=== PATIENT | male | born 1990 | race Caucasian/White ===

== ENCOUNTER 2019-10-01 14:41 | Observation (INO) ==
[2019-10-01] MEDS ORDERED: 0.9 % Sodium Chloride 1,000 ML IVC ONE (15:51)
[2019-10-01] MEDS ORDERED: SODIUM CHLORIDE 0.9% IVPB ONE (16:00)
[2019-10-01] MEDS ORDERED: TOBRAMYCIN SULF IVPB ONE (16:00)
[2019-10-01 16:41] LABS: Basophils % 0.4 %; Eosinophils # 0.4 K/mcL (0.0-0.6); Hematocrit 47.2 % (37.5-50.1); Hemoglobin 15.5 g/dL (12.9-16.9); Immature Granulocytes % 0.6 % (0-4); Lymphocytes # 2.6 K/mcL (0.6-4.6); Lymphocytes % 25.2 %; Mean Corpuscular HGB Conc 32.8 g/dL (31.6-35.5); Mean Corpuscular Hemoglobin 29.1 pg (28.0-33.3); Mean Corpuscular Volume 88.7 fL (83.0-100.0); Mean Platelet Volume 8.1 fL (9.4-12.4); Monocytes # 0.7 K/mcL (0.0-1.3); Monocytes % 6.9 %; Neutrophils # 6.4 K/mcL (1.6-8.9); Platelet Count 323 K/mcL (140-400); Red Blood Count 5.32 M/mcL (4.19-5.50); Red Cell Distribution Width 13.2 % (11.5-14.5); Segmented Neutrophils % 62.9 %; White Blood Count 10.2 K/mcL (4.3-11.1)
[2019-10-01 16:54] LABS: BUN/Creatinine Ratio 29 (6-26); Blood Urea Nitrogen 14 mg/dL (6-20); Calcium 9.6 mg/dL (8.6-10.3); Carbon Dioxide 30 mEq/L (23-29); Chloride 101 mEq/L (98-107); Glucose 89 mg/dL (70-105); Osmolality,Calculated 288 (280-300); Potassium 4.1 mEq/L (3.5-5.1); Sodium 139 mEq/L (136-145); eGFR For African Americans > 60 (> 60); eGFR For Non-African Americans > 60 (> 60)
[2019-10-01] MEDS ORDERED: Aminoglycoside Consult 1 EACH MC ONE (17:30)
[2019-10-01 17:58] LABS: Bilirubin,Urine Negative (Negative); Blood,Urine Large (Negative); Clarity,Urine Cloudy (Clear); Color,Urine Yellow (Yellow); Glucose,Urine (UA) Normal (Normal); Ketones,Urine Negative (Negative); Leukocyte Esterase,Urine Large (Negative); Nitrite,Urine Negative (Negative); PH,Urine 8.5 pH Units (5.0-8.0); Protein,Urine 30 mg/dL (Neg-Trace); Specific Gravity,Urine 1.015 (1.010-1.025); Urobilinogen,Urine Normal (Normal)
[2019-10-01 18:14] LABS: Amorphous Sediment,Urine Moderate (Few); Renal Epithelial Cells,Urine Many per hpf (None-Few); Squamous Epithelial Cell,Urine None Seen per lpf (None-Few); WBC,Urine 30-50 per hpf (0-3)
[2019-10-01 18:15] LABS: Mucus,Urine Few (Few); RBC,Urine 15-30 per hpf (0-3); Triple Phosphate Crystal,Urine Present
[2019-10-01] MEDS ORDERED: Naloxone 0.4 MG/ML INJ IVP PRN (19:01)
[2019-10-01] MEDS ORDERED: TOBRAMYCIN SULF IVPB SCH (19:01)
[2019-10-01] MEDS: 0.9 % Sodium Chloride 1,000 ML IVC SCH (20:20)
[2019-10-01] MEDS ORDERED: Acetaminophen 325 MG TABLET PO PRN (21:44)
[2019-10-01] MEDS ORDERED: traZODone 50 MG TABLET PO SCH (21:45)
[2019-10-01] MEDS: Gabapentin 300 MG CAPSULE PO SCH (22:50)
[2019-10-01] MEDS: OXcarbazepine 150 MG TABLET PO SCH (22:50)
[2019-10-01] MEDS: Famotidine 20 MG TABLET PO SCH (22:50)
[2019-10-02] MEDS: Gabapentin 300 MG CAPSULE PO SCH ×2 (08:18→14:36)
[2019-10-02] MEDS: OXcarbazepine 150 MG TABLET PO SCH (08:18)
[2019-10-02] MEDS: Famotidine 20 MG TABLET PO SCH (08:19)
[2019-10-02] MEDS ORDERED: Cyanocobalamin (B-12) 1,000 MCG TABLET PO SCH (09:00)
[2019-10-02] MEDS ORDERED: Triamcinolone Acet 0.1% CRM 15 GM TUBE TP SCH (09:00)
[2019-10-02] MEDS ORDERED: Cholecalciferol (D-3) 1,000 UNIT (25MCG) TABLET PO SCH (09:00)
[2019-10-02] MEDS ORDERED: Venlafaxine XR (24 HR) 150 MG CAP.ER.24H PO SCH (09:00)
[2019-10-02 10:40] VITALS: BP 101/64
[2019-10-02] MEDS: 0.9 % Sodium Chloride 1,000 ML IVC SCH (14:33)
[2019-10-02] MEDS ORDERED: TOBRAMYCIN SULF IVPB SCH (17:00)
[2019-10-02] MEDS ORDERED: SODIUM CHLORIDE 0.9% IVPB SCH (17:00)
[2019-10-03] MEDS ORDERED: *HR* FentaNYL PATCH 25 MCG PATCH TD SCH (09:00)
== END 2019-10-02 14:58 | disposition home or self-care (01) ==
LOC: EMEROOPIK 14:41 → INPPIK 14:41
PROVIDERS: ADMIT Internal Medicine; ATTEND Internal Medicine